=== PATIENT | male | born 1945 | race Caucasian/White ===

== ENCOUNTER 2018-03-12 19:02 | Emergency (ER) | payer OTHER ==
--- NOTE | 2018-03-12 19:18 | EDPHY ---
H & P Stated Complaint: RLQ abd pain Time Seen by Provider: 03/12/18 19:16 HPI/ROS: CHIEF COMPLAINT: Abdominal pain HISTORY OF PRESENT ILLNESS: This is a 72-year-old male who was referred to the emergency department by his primary care office, [facility]. He presented there today complaining of lower abdominal pain. He developed this pain 2 nights ago and describes it as"stomach cramps". He had some loose stool on Sunday and drank some prune juice. The following day some the loose stool had resolved but he continued with lower abdominal crampy pain. He started himself on a clear diet. The pain has persisted any now notes that is it is worse in his right lower abdomen. He feels bloated. He has had no fever no vomiting. He had a formed bowels movement this morning. He does note trouble initiating urination. This is not a new problem for him. He has had a urologic evaluation and been told that he has an enlarged prostate. He is not certain when he last urinated. REVIEW OF SYSTEMS: A ten system review of systems was performed and is negative with the exception of the items mentioned in the HPI. Past medical history: 1. Hypertension 2. Hyperlipidemia 3. Diverticulitis Past surgical history: Right calcaneal surgery Hemorrhoidectomy Family history: Father at an advanced age of coronary artery disease. Social history: He is . He is retired the formally worked as a farmer, laying wood floors. He does not use tobacco products. He drinks 1 cocktail and 1 glass of wine nightly. General Appearance: Alert. Vital signs reviewed. Blood pressure 160/87. Eyes: Pupils equal and round, no conjunctival injection, no discharge. Anicteric. ENT, Mouth: Mucous membranes are moist, no oropharyngeal erythema or edema. Neck: No lymphadenopathy, supple. Respiratory: Lungs are clear to auscultation; no wheezes, rales, or rhonchi. Cardiovascular: Regular rate and rhythm; no murmur, rub, or gallop. Gastrointestinal: Abdomen is soft with lower abdominal tenderness, worse in the right compared to the left, no masses or organomegaly, bowel sounds normal. No peritoneal signs. Skin: Warm and dry, no rashes on exposed skin, normal color. Back: Nontender to palpation over the thoracolumbar spine. No CVAT. Extremities: No lower extremity edema, no calf tenderness or swelling. Neurological: Alert and oriented. Moving all four extremities easily and equally. Psychiatric: Normal affect. - Personal History Current Tetanus/Diphtheria Vaccine: Yes Current Tetanus Diphtheria and Acellular Pertussis (TDAP): Yes - Medical/Surgical History Hx Asthma: No Hx Chronic Respiratory Disease: No Hx Diabetes: No Hx Cardiac Disease: Yes Hx Renal Disease: No Hx Cirrhosis: No Hx Alcoholism: Yes Hx HIV/AIDS: No Hx Splenectomy or Spleen Trauma: No Other PMH: HTN, high cholesterol, HTN,. PSHx: R calcaneous fx repair, hemorrhoidectomy. RBBB on ECG - Social History Smoking Status: Never smoked Constitutional: Initial Vital Signs Temperature (C) 37.1 C 03/12/18 19:07 Heart Rate 51 L 03/12/18 19:07 Respiratory Rate 16 03/12/18 19:07 Blood Pressure 160/87 H 03/12/18 19:07 O2 Sat (%) 97 03/12/18 19:07 O2 Delivery Mode Room Air Allergies/Adverse Reactions: No Known Allergies Allergy (Unverified 03/12/18 19:06) Home Medications: Medication Instructions Recorded Aspirin [Aspirin 81mg (*)] 81 mg PO HS 07/31/15 Atorvastatin Calcium [Lipitor 10 10 mg PO DAILY 07/31/15 mg (*)] Calcium/Magnesium/Vit D3 [Calcium 1,500 mg PO DAILY 07/31/15 500 mg Tablet] Cholecalciferol Vit D3 [Vitamin D3 2,000 units PO DAILY 07/31/15 2000 units] Lisinopril [Zestril 20 mg (*)] 10 mg PO DAILY 07/31/15 Amoxicillin/Clavulanate Pot 875 mg PO TID #30 tab 03/12/18 [Augmentin 875 MG TAB (*)] Propranolol HCl 03/12/18 Medical Decision Making ED Course/Re-evaluation: Bladder scan shows 87 mL. No significant urinary retention. CBC and chemistries are normal. He is afebrile. However, he does have right lower quadrant tenderness. He has history of diverticulitis, left-sided. Will obtain CT--concerned about appendicitis. CT shows diverticulitis. No perforation or abscess. Appendix visualized and normal. He is comfortable returning home on antibiotics. He has continued right sided abdominal tenderness, no guarding, no fever. He has not been vomiting and is not having diarrhea. He is being started on Augmentin. Importance of follow up stressed. Differential Diagnosis: Abdominal pain including but not limited to diverticulitis, appendicitis, cholecystitis, gastritis and urinary retention/urinary tract infection. - Data Points Laboratory Results: Laboratory Results 03/12/18 19:20 Medications Given: Discontinued Medications Amoxicillin/Clavulanate Potassium (Augmentin 875mg) 875 mg PO EDNOW ONE PRN Reason: Protocol Stop: 03/12/18 20:58 Last Admin: 03/12/18 21:01 Dose: 875 mg Point of Care Test Results: Chemistry 03/12/18 19:57 POC Sodium 142 mEq/L mEq/L (135-145) POC Potassium 3.7 mEq/L mEq/L (3.3-5.0) POC Chloride 105 mEq/L mEq/L (97-110) POC BUN 13 mg/dL mg/dL (7-23) POC Creatinine 0.9 mg/dL mg/dL (0.7-1.3) POC Glucose 106 mg/dL H mg/dL (70-100) ISTAT H&H 03/12/18 19:57 POC Hgb 16.0 gm/dL gm/dL (13.7-17.5) POC Hct 47 % % (40-51) Departure - Departure Disposition: Home, Routine, Self-Care Clinical Impression: Diverticulitis Condition: Good Instructions: Diverticulitis (ED) Additional Instructions: Take the antibiotics, Augmentin three times daily, for ten days. Please follow up with Dr. Byers. If you develop worsening pain, fever, vomiting, persistent bloody diarrhea, any new or concerning symptoms you should be re-evaluated immediately. Referrals: Starr Byers MD [Primary Care Provider] - As per Instructions Prescriptions: Amoxicillin/Clavulanate Pot [Augmentin 875 MG TAB (*)] 875 mg PO TID #30 tab
[2018-03-12 19:39] LABS: PLATELET COUNT 251 10^3/uL (150-400)
[2018-03-12] MEDS ORDERED: IOPAMIDOL (ISOVUE-300) 100 ML BTL ONE (20:24)
[2018-03-12] MEDS ORDERED: AMOXICILLIN/CLAVULANATE POT 875/125 MG TAB PO ONE (20:57)
[2018-03-12 21:19] VITALS: BP 147/66
== END 2018-03-12 21:18 | disposition home or self-care (01) ==
DX: K57.92 Diverticulitis of intestine, part unspecified, without perforation or abscess without bleeding (principal); I10 Essential (primary) hypertension; E78.5 Hyperlipidemia, unspecified
CPT/HCPCS: 74177; 99285; Q9967; 82435-PO; 82565-PO; 82947-PO; 84132-PO; 84295-PO; 84520-PO; 85014-PO